=== PATIENT | male | born 1960 | race Two or more races ===

== ENCOUNTER 2018-04-08 13:32 | Emergency (ER) | payer BC ==
[~2018-04-08] VITALS: Ht 170.2 cm; Wt 82.1 kg
[2018-04-08] MEDS ORDERED: SODIUM CHLORIDE 0.9% 1,000 ML IVB ONE (14:41)
[2018-04-08] MEDS ORDERED: KETOROLAC TROMETH 60MG/2ML VIAL IM ONE (14:45)
[2018-04-08] MEDS ORDERED: KETOROLAC TROMETH 30 MG/ML 1ML VIAL IV ONE (14:45)
[2018-04-08] MEDS ORDERED: cefTRIAXone 1GM/50ML D5W 50 ML IV ONE (15:15)
[2018-04-08 15:44] LABS: Urine Bacteria NONE SEEN /hpf (None Seen); Urine Blood Negative /uL (Negative); Urine Specific Gravity 1.017 (1.001-1.035); Urine WBC 2 /hpf (0 - 3)
[2018-04-08] MEDS ORDERED: MORPHINE SULF INJ 2 MG/ML SYRINGE 1ML ONE (15:49)
[2018-04-08] MEDS ORDERED: ONDANSETRON HCL 4 MG/2 ML VIAL ONE (15:49)
[2018-04-08] MEDS ORDERED: ONDANSETRON HCL 4 MG/2 ML VIAL IV ONE (16:15)
[2018-04-08] MEDS ORDERED: MORPHINE SULFATE 4 MG/ML SYR/VIAL IV ONE (16:15)
[2018-04-08 16:35] VITALS: BP 128/68
== END 2018-04-08 17:25 | disposition home or self-care (01) ==
LOC: ER 13:32
DX: N45.1 Epididymitis (principal); F17.210 Nicotine dependence, cigarettes, uncomplicated
CPT/HCPCS: 76870; 81001; 94761; 96361; 96365; 96375; 99284; J0696; J1885; J2270; J2405; J7030

== ENCOUNTER 2020-12-02 15:19 | Emergency (ER) | payer BC ==
[~2020-12-02] VITALS: Ht 170.2 cm; Wt 91.2 kg
[2020-12-02] MEDS ORDERED: HYDROcodone-ACET 10/325MG TAB PO ONE (15:30)
[2020-12-02] MEDS ORDERED: KETOROLAC TROMETH 60MG/2ML VIAL IM ONE (15:30)
[2020-12-02] MEDS ORDERED: SODIUM CHLORIDE 0.9% 1,000 ML IV ONE (15:45)
[2020-12-02 16:01] LABS: Basophils # (auto) 0.1 10 ^3/uL (0-0.2); Basophils % (auto) 1.2 % (0.0-2.0); Eosinophils # (auto) 0.3 10 ^3/uL (0-0.8); Eosinophils % (auto) 3.9 % (0.0-7.0); Hemoglobin 15.6 g/dL (13.5-17.5); Lymphocytes # (auto) 1.9 10 ^3/uL (0.4-5.4); Lymphocytes % (auto) 24.1 % (10.0-50.0); Mean Corpuscular Volume 91.2 fL (80.0-100.0); Monocytes # (auto) 1.1 10 ^3/uL (0-1.3); Monocytes % (auto) 13.6 % (0.0-12.0); Neutrophils # (auto) 4.6 10 ^3/uL (1.6-8.6); Neutrophils % (auto) 57.2 % (37.0-80.0); Nucleated Red Blood Cells % 0.1 %; Red Blood Cells 5.04 10^6/uL (4.5-5.90); Red Cell Distribution Width 13.9 % (11.8-14.3)
[2020-12-02 16:15] LABS: Alanine Aminotransferase 42 U/L (16-61); Albumin 3.5 g/dL (3.4-5.0); Anion Gap 7 (5-15); Aspartate Aminotransferase 18 U/L (15-37); Blood Urea Nitrogen 16 mg/dL (7-18); Calcium 8.4 mg/dL (8.5-10.1); Carbon Dioxide 25 mmol/L (21-32); Chloride 104 mmol/L (98-107); GFR African American 127 mL/min; GFR Non-African American 105 mL/min; Glucose 149 mg/dL (74-106); Potassium 3.7 mmol/L (3.5-5.1); Sodium 136 mmol/L (136-145)
[2020-12-02 16:20] LABS: Alkaline Phosphatase 104 U/L (45-117); Bilirubin, Total 0.3 mg/dL (0.2-1.0); Total Protein 7.7 g/dL (6.4-8.2)
[2020-12-02 17:05] VITALS: BP 155/81
== END 2020-12-02 17:06 | disposition home or self-care (01) ==
LOC: ER 15:19
DX: S86.911A Strain of unspecified muscle(s) and tendon(s) at lower leg level, right leg, initial encounter (principal); F17.200 Nicotine dependence, unspecified, uncomplicated; I10 Essential (primary) hypertension; Z87.442 Personal history of urinary calculi; W18.39XA Other fall on same level, initial encounter; Y93.89 Activity, other specified; Y92.89 Other specified places as the place of occurrence of the external cause; Y99.8 Other external cause status
CPT/HCPCS: 36415; 71045; 73700; 80053; 84484; 85025; 96372; 99285; J1885